=== PATIENT | female | born 1935 | race Caucasian/White ===

== ENCOUNTER → 2024-01-31 09:52 | Outpatient (CLI) | payer MEDICARE, SELFPAY ==
[2024-01-31 10:55] LABS: NT-proBNP (BNP-Adult 18+) 642 pg/mL (<450)
== END ==
PROVIDERS: Family Provider Family Medicine; PCP Family Medicine; Referring Provider Internal Medicine Cardiovascular Disease; Visit Provider Internal Medicine Cardiovascular Disease
DX: R06.09 Other forms of dyspnea (principal); I48.91 Unspecified atrial fibrillation; R00.1 Bradycardia, unspecified; I44.7 Left bundle-branch block, unspecified; I51.7 Cardiomegaly
CPT/HCPCS: 36415; 83880